=== PATIENT | female | born 1965 | race Caucasian/White ===

== ENCOUNTER 2019-06-04 19:37 | Inpatient (IN) ==
[2019-06-04] MEDS ORDERED: Isovue-370 500 ML BOTTLE IVP ONE (20:41)
[2019-06-04] MEDS ORDERED: Morphine Sulfate 2 MG/ML SYRINGE IVP ONE (20:55)
--- NOTE | 2019-06-04 20:55 | Emergency Department Note ---
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, PAD (peripheral artery disease), Factor V Leiden Disposition: Admitted As Inpatient Condition: Fair Time of Disposition: 23:00 General Adult HPI - General Chief complaint: ED Extremity Problem,Nontraumatic Stated complaint: L Leg Tingling Time Seen by Provider: 06/04/19 19:46 Source: patient Mode of arrival: private vehicle Limitations: no limitations Nursing Notes Reviewed: Yes Vital Signs Reviewed: Yes - History of Present Illness HPI Narrative: 53-year-old female with a history of PAD, factor V Fleet, DVTs, PEs, diabetes presents to the emergency department for evaluation of left leg numbness, cold, change in color, pain. Patient states over the last 30 days she has had pain and tingling in her leg off and on but this morning when she woke up the pain was in her groin and it was severe and radiating distally, around 1500 the pain moved to her knee radiating distally and around 1900 patient started having significant pain to her lower extremity, pallor, paresthesias. She states she was unable to walk. She denies any trauma. She does state that she follows with Dr. Dodge for vascular, she has had "making my arteries bigger", she has a stent "to the left side under my aorta". She does state that she has not on any anticoagulants except an 81 mg aspirin. She states the vascular surgeon took her off it quite some time ago. She does state she had some vomiting yesterday. She states she went to a festival where she was ambulating all day. She states a lot of ambulation well "cause a flare" of her leg pain however this goes above and beyond what her leg pain has ever felt like. Onset (ago): hour(s) Location: left, lower extremity Radiation: non-radiation Pain Severity: severe Pain Scale: 10 Consistency: constant, Worsening Improves with: nothing Worsens with: nothing Associated symptoms: Reports: nausea/vomiting (She states she was vomiting yesterday). Denies: confusion, chest pain, cough, diaphoresis, fever/chills, headaches, loss of appetite, malaise, rash, seizure, shortness of breath, syncope, weakness Treatments Prior to Arrival: none - Related Data Home Medications Medication Instructions Recorded Confirmed Aspirin [Lo-Dose Aspirin EC] 81 mg PO DAILY 03/22/19 03/22/19 Cyclobenzaprine [Flexeril] 10 mg PO TID PRN 03/22/19 03/22/19 Ergocalciferol (VITAMIN D2) 50,000 unit PO TYLER 03/22/19 03/22/19 [Vitamin D2] Furosemide [Lasix] 20 mg PO DAILY PRN 03/22/19 03/22/19 Gabapentin [Neurontin] 100 mg PO TID 03/22/19 03/22/19 Metformin HCl 500 mg PO DAILY 03/22/19 03/22/19 Montelukast [Singulair] 10 mg PO DAILY 03/22/19 03/22/19 Omeprazole [PriLOSEC] 20 mg PO DAILY 03/22/19 03/22/19 Ondansetron HCl [Zofran] 4 mg PO BID PRN 03/22/19 03/22/19 Previous Rx's Medication Instructions Recorded Amoxicillin [Amoxil] 500 mg PO BID #14 capsule 03/22/19 Allergies Allergy/AdvReac Type Severity Reaction Status Date / Time simvastatin AdvReac Muscle Pain Verified 06/04/19 19:53 All systems ED: reviewed and negative except as stated. Review of Systems: As Per HPI Past Medical History - Past Medical History Attestation: Yes The following information was validated with the patient. Source: patient Medical history: Reports: cancer, DVT, diabetes, GERD, hyperlipidemia, hypertension, migraine, peripheral artery disease Surgical history: Reports: , herniorrhaphy, hysterectomy Psychiatric history: Reports: anxiety - Social History Smoking Status: Never smoker Smokeless Tobacco Status: Yes Alcohol use: Reports: none Drug use: Reports: none Physical Exam - General Limitations: no limitations General appearance: alert, in no apparent distress - Head Head exam: atraumatic - Eye Eye exam: Present: normal appearance - ENT ENT exam: mucous membranes moist - Neck Neck exam: Present: normal inspection, full ROM, trachea midline - Chest Chest inspection: Present: normal inspection, symmetric chest wall rise - Respiratory Respiratory exam: Present: normal lung sounds bilaterally - Cardiovascular Cardiovascular exam: Present: regular rate, normal rhythm, normal heart sounds - Abdominal Exam Abdominal exam: Present: soft, Non-Tender, normal bowel sounds - Expanded Lower Extremity Exam Hip/Pelvis exam: Present: normal inspection, other (palpable femoral pulse) Upper leg exam: Present: normal inspection, full ROM Knee exam: Present: normal inspection, full ROM. Absent: tenderness Lower leg exam: Present: normal inspection, full ROM, other (distal half of lower extremity cold to touch) Ankle exam: Present: normal inspection, full ROM, other (cold to touch) Foot/toe exam: Present: full ROM, other (pallor, sluggish cap refill) Neurovascular/Tendon exam: Present: pulse deficit. Absent: normal capillary refill, motor deficit - Neurological Exam Neurological exam: Present: alert, oriented X3 - Psychiatric Psychiatric exam: Present: normal affect, normal mood - Skin Skin exam: Present: warm, dry, intact, normal color, pallor (left lower extremity) Course Course Narrative: Well-developed female in no acute distress. Respirations are easy and even. She is afebrile, normotensive, not tachycardic. Assessment reveals the distal half of the lower extremity with pallor, sluggish capillary refills, cold to touch. There is no palpable pulses to the DP or the TB. Utilizing Doppler a faint pulse was auscultated by myself to the TB. Good femoral pulses. Rest of physical exam is unremarkable. Immediate concern for ischemic limb, labs, CT of the aorta with runoff ordered. We will treat pain. Pt with pain, parasthesia, pallor, pulselessness 4 of the 6Ps on initial assessment. [id number] with Dr. Davalos from [facility], patient appears to have a left common iliac stent that is thrombosed as well as a proximal left popliteal artery thrombosed, only the TB overflow providing blood flow to the left lower extremity. Spoke with Dr. Leonard, on-call vascular surgeon, case was presented to him. After discussion he states he will come and see the patient. Patient now has paralysis of her toes, she states she is unable to command movem ent of them, pain is increasing. We have treated pain, anxiety. [id number] vascular surgeon determine take patient to surgery tonight. Patient is agreeable to this plan of care. We will monitor patient until time to go to surgery. Vital Signs Temperature 98.3 F 06/04/19 19:50 Pulse Rate 76 06/04/19 19:50 Respiratory Rate 18 06/04/19 19:50 Blood Pressure 161/91 06/04/19 19:50 O2 Sat by Pulse Oximetry 98 06/04/19 19:50 Temperature 97.8 F 06/05/19 04:40 Pulse Rate 89 06/05/19 05:15 Respiratory Rate 15 06/05/19 05:15 Blood Pressure 116/79 06/05/19 05:15 O2 Sat by Pulse Oximetry 94 06/05/19 05:15 Oxygen Delivery Oxygen Delivery Room Air Medical Decision Making - Lab Data Result diagrams: 06/05/19 00:52 06/04/19 20:09 Lab Results 06/04/19 06/04/19 06/04/19 Range/Units 20:09 20:09 20:09 WBC 8.4 (4.3-11.1) K/mcL RBC 4.24 (3.82-4.97) M/mcL Hgb 11.9 (11.5-15.4) g/dL Hct 36.7 (35.3-44.9) % MCV 86.6 (83.0-100.0) fL MCH 28.1 (28.0-33.3) pg MCHC 32.4 (31.6-35.5) g/dL RDW 13.6 (11.5-14.5) % Plt Count 260 (140-400) K/mcL MPV 9.6 (9.4-12.4) fL Immature Gran % 0.2 (0-4) % Seg Neutrophils % 49.7 % Lymphocytes % 39.5 % Monocytes % 6.9 % Eosinophils % 3.2 % Basophils % 0.5 % Neutrophils # 4.2 (1.6-8.9) K/mcL Lymphocytes # 3.3 (0.6-4.6) K/mcL Monocytes # 0.6 (0.0-1.3) K/mcL Eosinophils # 0.3 (0.0-0.6) K/mcL Basophils # 0.0 (0.0-0.2) K/mcL PT 10.5 (9.4-12.1) Seconds INR 0.9 APTT 27.7 (26.0-36.0) Seconds Sodium 136 (136-145) mEq/L Potassium 3.5 (3.5-5.1) mEq/L Chloride 104 (98-107) mEq/L Carbon Dioxide 23 (23-29) mEq/L BUN 16 (6-20) mg/dL Creatinine 0.74 (0.60-1.20) mg/dL Est GFR ( Amer) > 60 (> 60) Est GFR (Non-Af Amer) > 60 (> 60) BUN/Creatinine Ratio 22 (6-26) Glucose 107 H (70-105) mg/dL Calculated Osmolality 284 (280-300) Calcium 9.3 (8.6-10.3) mg/dL
--- NOTE | 2019-06-04 20:55 | Emergency Department Note ---
Disposition Clinical Impression: Arterial occlusion, lower extremity Disposition: Admitted As Inpatient Condition: Serious Referrals: Niurka Quarles, REINSURANCE CLAIM ANALYST [Primary Care Provider] - Forms: ED Satisfaction Letter Time of Disposition: 23:00 General Adult HPI - General Chief complaint: ED Extremity Problem,Nontraumatic Stated complaint: L Leg Tingling Time Seen by Provider: 06/04/19 19:46 Source: patient Limitations: no limitations Nursing Notes Reviewed: Yes Vital Signs Reviewed: Yes - History of Present Illness Pain Scale: 10 - Related Data Home Medications Medication Instructions Recorded Confirmed Aspirin [Lo-Dose Aspirin EC] 81 mg PO DAILY 03/22/19 03/22/19 Cyclobenzaprine [Flexeril] 10 mg PO TID PRN 03/22/19 03/22/19 Ergocalciferol (VITAMIN D2) 50,000 unit PO TYLER 03/22/19 03/22/19 [Vitamin D2] Furosemide [Lasix] 20 mg PO DAILY PRN 03/22/19 03/22/19 Gabapentin [Neurontin] 100 mg PO TID 03/22/19 03/22/19 Metformin HCl 500 mg PO DAILY 03/22/19 03/22/19 Montelukast [Singulair] 10 mg PO DAILY 03/22/19 03/22/19 Omeprazole [PriLOSEC] 20 mg PO DAILY 03/22/19 03/22/19 Ondansetron HCl [Zofran] 4 mg PO BID PRN 03/22/19 03/22/19 Previous Rx's Medication Instructions Recorded Amoxicillin [Amoxil] 500 mg PO BID #14 capsule 03/22/19 Allergies Allergy/AdvReac Type Severity Reaction Status Date / Time simvastatin AdvReac Muscle Pain Verified 06/04/19 19:53 Past Medical History - Past Medical History Medical history: Reports: cancer, DVT, diabetes, GERD, hyperlipidemia, hypertension, migraine, peripheral artery disease Surgical history: Reports: , herniorrhaphy, hysterectomy Psychiatric history: Reports: anxiety - Social History Smoking Status: Never smoker Smokeless Tobacco Status: Yes Alcohol use: Reports: none Drug use: Reports: none Physical Exam - General Limitations: no limitations General appearance: alert, in no apparent distress Course Vital Signs Temperature 98.3 F 06/04/19 19:50 Pulse Rate 76 06/04/19 19:50 Respiratory Rate 18 06/04/19 19:50 Blood Pressure 161/91 06/04/19 19:50 O2 Sat by Pulse Oximetry 98 06/04/19 19:50 Temperature 98.3 F 06/04/19 19:50 Pulse Rate 80 06/04/19 22:49 Respiratory Rate 24 06/04/19 22:49 Blood Pressure 142/77 06/04/19 22:49 O2 Sat by Pulse Oximetry 95 06/04/19 22:49 Oxygen Delivery Oxygen Delivery Room Air Medical Decision Making - Medical Records Medical records reviewed: Yes I reviewed the patient's medical records. - Lab Data Lab results reviewed: Yes I reviewed the patient's lab results. Result diagrams: 06/04/19 20:09 06/04/19 20:09 Lab Results 06/04/19 06/04/19 06/04/19 Range/Units 20:09 20:09 20:09 WBC 8.4 (4.3-11.1) K/mcL RBC 4.24 (3.82-4.97) M/mcL Hgb 11.9 (11.5-15.4) g/dL Hct 36.7 (35.3-44.9) % MCV 86.6 (83.0-100.0) fL MCH 28.1 (28.0-33.3) pg MCHC 32.4 (31.6-35.5) g/dL RDW 13.6 (11.5-14.5) % Plt Count 260 (140-400) K/mcL MPV 9.6 (9.4-12.4) fL Immature Gran % 0.2 (0-4) % Seg Neutrophils % 49.7 % Lymphocytes % 39.5 % Monocytes % 6.9 % Eosinophils % 3.2 % Basophils % 0.5 % Neutrophils # 4.2 (1.6-8.9) K/mcL Lymphocytes # 3.3 (0.6-4.6) K/mcL Monocytes # 0.6 (0.0-1.3) K/mcL Eosinophils # 0.3 (0.0-0.6) K/mcL Basophils # 0.0 (0.0-0.2) K/mcL PT 10.5 (9.4-12.1) Seconds INR 0.9 APTT 27.7 (26.0-36.0) Seconds Sodium 136 (136-145) mEq/L Potassium 3.5 (3.5-5.1) mEq/L Chloride 104 (98-107) mEq/L Carbon Dioxide 23 (23-29) mEq/L BUN 16 (6-20) mg/dL Creatinine 0.74 (0.60-1.20) mg/dL Est GFR ( Amer) > 60 (> 60) Est GFR (Non-Af Amer) > 60 (> 60) BUN/Creatinine Ratio 22 (6-26) Glucose 107 H (70-105) mg/dL Calculated Osmolality 284 (280-300) Calcium 9.3 (8.6-10.3) mg/dL - Radiology Data Radiology results reviewed: Yes I reviewed the patient's radiology results. Aorta w/Runoff CTA 06/04/19 20:41 IMPRESSION: 1. Stent in the proximal left common iliac artery which appears thrombosed. No contrast within the lumen. Distal reconstitution of the common iliac artery from retrograde flow. 2. Abrupt cutoff in the proximal left popliteal artery possibly representing acute thrombosis. Reconstitution of flow in the posterior tibial artery with a single vessel runoff into the ankle. Findings were discussed with Maria Eugenia García CNP of the [facility] emergency department at 9:47 pm on 06/04/2019. D/ / Raphael Davalos MD / Raphael Davalos MD Interpreting Provider: Raphael Davalos MD - EKG Data EKG #1 EKG attestation: Yes I reviewed and interpreted this EKG. EKG results narrative: EKG shows normal sinus rhythm with ventricular rate of 69. Left axis deviation. No significant ST segment elevation or depression. No arrhythmia or ectopy. No significant change from prior EKG dated 12/05/2015. Critical Care Time Critical Care Time: Yes Total Critical Care Time: 35 Attestation: Critical care performed: Time is exclusive of separately billable procedures. Time includes: direct patient care, patient reassessment, coordination of patient care, interpretation of data (laboratory data, radiology data, and respiratory data), review of patient's medical records, medical consultation and documentation of patient care. Procedures included in critical care time: Procedures excluded from critical care time: Attestation Statement - Attestation Attestation: I, Tyler Posada MD, personally evaluated this patient and discussed their management with the midlevel provicer, PAC/REINSURANCE CLAIM ANALYST. I reviewed the midlevel provider's note and agree with the documented findings, medical decision making, and plan of care. 53-year-old female with a history of peripheral vascular disease and a stent iliac presents to the emergency department complaining of intermittent problems with her left leg for the past month. This morning when she awoke she had a lot of pain in the left hip and groin area. At the day the pain gradually moved down the leg and this evening she developed pain from the knee down to the toes. Her left foot has turned cold and dusky and she is unable to walk due to the pain. On examination patient is a well-developed well-nourished female in no acute distress. She is alert and oriented 3. There is no cyanosis or diaphoresis. Sounds are clear and equal bilaterally. Heart regular rate and rhythm. Abdomen soft and nontender with normal bowel sounds. The left lower extremity is cold from the mid lower leg down to the toes. The toes are pale and dusky with delayed capillary refill. Unable to palpate DT or PT pulses. Questionable PT pulse Doppler but no DVT pulse by Doppler. EKG shows normal sinus rhythm with ventricular rate of 69. Left axis deviation. No significant ST segment elevation or depression. No arrhythmia or ectopy. No significant change from prior EKG dated 12/05/2015. CT aortogram with runoff shows thrombosis of the left iliac stent and acute thrombosis of the proximal left popliteal artery. Labs reviewed and unremarkable. The vascular surgeon telephone surveyor, Dr. Tate, was consulted and will follow-up with the patient shortly in the emergency department. After evaluation in the emergency department the patient is being taken to the operating room.
[2019-06-04 21:17] LABS: Basophils % 0.5 %; Eosinophils # 0.3 K/mcL (0.0-0.6); Eosinophils % 3.2 %; Hematocrit 36.7 % (35.3-44.9); Hemoglobin 11.9 g/dL (11.5-15.4); Immature Granulocytes % 0.2 % (0-4); Lymphocytes # 3.3 K/mcL (0.6-4.6); Lymphocytes % 39.5 %; Mean Corpuscular HGB Conc 32.4 g/dL (31.6-35.5); Mean Corpuscular Hemoglobin 28.1 pg (28.0-33.3); Mean Corpuscular Volume 86.6 fL (83.0-100.0); Mean Platelet Volume 9.6 fL (9.4-12.4); Monocytes # 0.6 K/mcL (0.0-1.3); Monocytes % 6.9 %; Neutrophils # 4.2 K/mcL (1.6-8.9); Platelet Count 260 K/mcL (140-400); Red Blood Count 4.24 M/mcL (3.82-4.97); Red Cell Distribution Width 13.6 % (11.5-14.5); Segmented Neutrophils % 49.7 %; White Blood Count 8.4 K/mcL (4.3-11.1)
[2019-06-04 21:25] LABS: INR 0.9; Prothrombin Time 10.5 Seconds (9.4-12.1)
[2019-06-04 21:28] LABS: Activated Partial Thrombo Time 27.7 Seconds (26.0-36.0)
[2019-06-04 21:36] LABS: BUN/Creatinine Ratio 22 (6-26); Blood Urea Nitrogen 16 mg/dL (6-20); Calcium 9.3 mg/dL (8.6-10.3); Carbon Dioxide 23 mEq/L (23-29); Chloride 104 mEq/L (98-107); Glucose 107 mg/dL (70-105); Osmolality,Calculated 284 (280-300); Potassium 3.5 mEq/L (3.5-5.1); Sodium 136 mEq/L (136-145); eGFR For African Americans > 60 (> 60); eGFR For Non-African Americans > 60 (> 60)
[2019-06-04] MEDS ORDERED: *HR* HYDROmorphone 2 MG/ML SYRINGE IVP ONE (21:51)
[2019-06-04] MEDS ORDERED: *HR* FentaNYL (PF) 100 MCG/2 ML VIAL IVP ONE (22:40)
[2019-06-04] MEDS ORDERED: *HR* LORazepam 2 MG/ML VIAL IVP ONE (22:40)
[2019-06-04] MEDS ORDERED: *HR* Cisatracurium 10 MG/5 ML VIAL IV ONE (23:35)
--- NOTE | 2019-06-04 23:40 | Vascular/Endovasc Consult Note ---
Date of Encounter: 06/04/19 Time of Encounter: 23:36 Assessment and Plan (1) Arterial occlusion, lower extremity Current Visit: Yes Status: Acute 53-year-old white female presents with severe pain involving the left leg. The patient does not have a femoral popliteal or pedal pulses. She has a faint left posterior tibial signal. Her calf is soft without compartment syndrome at this stage. Her left foot is bluish. She has abnormal sensation and motor function left foot. The patient is morbidly obese. She is known to have factor V Leiden deficiency. I recommend urgent intervention on her left lower extremity for revascularization. I will attempt an embolectomy of the left common iliac artery. If I am unable to do so I will pursue with a cross femoral bypass. Embolectomy of the left popliteal artery would be done through a groin incision. If I was not able to restore flow through the left popliteal artery I will explore the calf vessels. I explained the surgical procedure needed for revascularization of her left leg to the patient and her . They were both agreeable for me to pursue with the procedure. They gave me her informed consent. They are aware if that procedure is not done the patient cannot develop permanent muscle or nerve damage to the left leg. 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 Smith is a 53 year old female seen at the request of the emergency room team for severe pain involving the left lower extremity. The patient claims that she has been having problem was her left for the past 30-60 days. Her pain initially was consistent with claudication and affecting her left thigh and calf. The patient claims at 6:00 pm tonight she started experiencing severe pain involving her left foot. The pain was graded as 10 over 10 in intensity. It was throbbing-like. Patient claims that she could not put her foot on the floor. The foot hurts constantly. She has received morphine, Dilaudid, Ativan in the emergency room without any relief of her pain. The patient claims that she cannot move her toes to command. The patient is known to have a history of left common iliac artery stent. The patient claims that she quit smoking 2014. She smoked for more than 20 years prior to that. She is allergic to lovastatin. Past Med Surg Social Fam HX - Past Medical History Medical history: cancer, DVT, diabetes, GERD, hyperlipidemia, hypertension, migraine, peripheral artery disease Additional medical history: factor 5, stomach ulcers, skin cancer Psychiatric history: anxiety - Past Surgical History Surgical History: , herniorrhaphy, hysterectomy Additional surgical history: tubal. stent. vein stripping. tumor removed from ABD-benign. teeth pulled - Social History Smoking Status: Never smoker Smokeless Tobacco Status: Yes Alcohol use: none Drug use: none Medications and Allergies Amoxicillin [Amoxil] 500 mg PO BID #14 capsule 03/22/19 [Rx] Aspirin [Lo-Dose Aspirin EC] 81 mg PO DAILY 03/22/19 [History] Cyclobenzaprine [Flexeril] 10 mg PO TID PRN 03/22/19 [History] Ergocalciferol (VITAMIN D2) [Vitamin D2] 50,000 unit PO TYLER 03/22/19 [History] Furosemide [Lasix] 20 mg PO DAILY PRN 03/22/19 [History] Gabapentin [Neurontin] 100 mg PO TID 03/22/19 [History] Metformin HCl 500 mg PO DAILY 03/22/19 [History] Montelukast [Singulair] 10 mg PO DAILY 03/22/19 [History] Omeprazole [PriLOSEC] 20 mg PO DAILY 03/22/19 [History] Ondansetron HCl [Zofran] 4 mg PO BID PRN 03/22/19 [History] Allergy/AdvReac Type Severity Reaction Status Date / Time simvastatin AdvReac Muscle Pain Verified 06/04/19 19:53 ROS unobtainable: due to endotracheal tube All Systems Review: The remainder of the systems were reviewed and are negative - EENT Eyes: other (Chronic sinus problem.) Nose, mouth and throat: sinus pain - Cardiovascular Cardiovascular: claudication, other - Vascular Vascular: lower extremity coldness, other (Left leg constant pain.) - Respiratory Respiratory: cough - Musculoskeletal Musculoskeletal: abnormal gait, muscle cramps, myalgias - Integumentary Integumentary: other (Blose discoloration left toes) - Neurological Neurological: numbness Exam Vital Signs, Last 4 Hours Temp Pulse Resp BP Pulse Ox 06/04/19 22:49 80 24 142/77 95 06/04/19 22:07 81 18 144/77 99 06/04/19 21:22 75 23 155/76 99 06/04/19 19:50 98.3 F 76 18 161/91 98 General: Present: Other (In distress from severe pain involving her left foot.) HEENT: Present: Atraumatic, Pupils equal Neck: Present: Other (Supple no lymphadenopathy) Cardiac: Present: Reg Rate and Rhythm, Normal S1 and S2, No Murmur Lungs: Present: Normal Breath Sounds, No Wheeze, Rales, Rhonchi Neuro: Present: Other (Loss of sensation left foot. Significant pain left foot. Inability to move her toes on the left.) Abdomen: Present: Soft, Non-tender Vascular: Present: Pulse, absent (Absent left femoral popliteal pedal pulses. Calf is soft without compartment syndrome. Faint left posterior tibial signal.) Skin: Present: Other (Ischemic left foot) Consult Discharge Plan - Plan Referrals: Niurka Quarles, VENTURA [Primary Care Provider] -
--- NOTE | 2019-06-04 23:41 | Anesthesia Evaluation PreOp ---
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: Denies Any Significant HX Other Medical History: Diabetes Type II, GERD (hiatal hernia) Anesthesia History: No Prior Anesthetic Complications, Past Anesthesia Alcohol Use: occasionally Drug use: none Medications and Allergies Amoxicillin [Amoxil] 500 mg PO BID #14 capsule 03/22/19 [Rx] Aspirin [Lo-Dose Aspirin EC] 81 mg PO DAILY 03/22/19 [History] Cyclobenzaprine [Flexeril] 10 mg PO TID PRN 03/22/19 [History] Ergocalciferol (VITAMIN D2) [Vitamin D2] 50,000 unit PO TYLER 03/22/19 [History] Furosemide [Lasix] 20 mg PO DAILY PRN 03/22/19 [History] Gabapentin [Neurontin] 100 mg PO TID 03/22/19 [History] Metformin HCl 500 mg PO DAILY 03/22/19 [History] Montelukast [Singulair] 10 mg PO DAILY 03/22/19 [History] Omeprazole [PriLOSEC] 20 mg PO DAILY 03/22/19 [History] Ondansetron HCl [Zofran] 4 mg PO BID PRN 03/22/19 [History] Allergy/AdvReac Type Severity Reaction Status Date / Time simvastatin AdvReac Muscle Pain Verified 06/04/19 19:53 - Meds/Allergy Pre-op Review Medications Reviewed: Yes Allergies Reviewed: Yes Beta Blockers on Current Med List: No Anesthesia Results - Labs 06/04/19 20:09 06/04/19 20:09 Laboratory Tests 06/04/19 20:09 PT 10.5 INR 0.9 APTT 27.7 - Imaging EKG: report reviewed (12/05/2015 SINUS TACHYCARDIA MARKED LEFT AXIS DEVIATION POSSIBLE ANTERIOR MYOCARDIAL INFARCTION, PROBABLY OLD [place] [facility] [place]) Anesthesia Exam Vital Signs/O2 Sat, Most Current Temp Pulse Resp BP Pulse Ox 98.3 F 80 24 142/77 95 06/04/19 19:50 06/04/19 22:49 06/04/19 22:49 06/04/19 22:49 06/04/19 22:49 Height: 5'2''/1.57m Weight: 176 lbs/80.2 kg NPO (# of Hours): 8 Pain Scale: 8 (left leg) Pain Scale Used: Numeric (1 - 10) - HEENT Pupil (Motor): EOMI Mallampati: II Teeth: Normal, Missing Denture Type: Upper: Partial, Lower: Partial Oral Opening: Greater than 3 - RICE CLEANING MACHINE TENDER LOC: Oriented [employer]ICE CLEANING MACHINE TENDER Motor: Normal RUE, Normal LUE, Normal RLE, Normal Face, Deficit LLE [employer]ICE CLE[employer]ING MACHINE TENDER Sensory: Normal: RUE, LUE, RLE, Face, Deficit: LLE - Cardiac Rhythm: Regular Murmur: None - Pulmonary Breath Sounds: bilateral Clear Respiratory Effort: Symmetrical Anesthesia Assess/Plan ASA Score: 3 Level of consciousness: Cooperative, Oriented, Tranquil Anesthetic Plan: General Monitoring Plan: Standard Monitors Recovery Plan: PACU
[2019-06-04] MEDS ORDERED: Heparin 1,000 UNITS/500 mL 1,000 ML ONE (23:53)
[2019-06-05] MEDS ORDERED: *HR* Midazolam HCl 2 MG/2 ML VIAL ONE (00:03)
[2019-06-05] MEDS ORDERED: *HR* Propofol 200 MG/20 ML VIAL IVP ONE (00:03)
[2019-06-05] MEDS ORDERED: *HR* FentaNYL (PF) 100 MCG/2 ML VIAL ONE ×2 (00:03→01:22)
[2019-06-05] MEDS ORDERED: *HR* Succinylcholine 200 MG/10 ML VIAL IVP ONE (00:03)
[2019-06-05] MEDS ORDERED: Lidocaine -MPF 2% 2 ML VIAL ONE (00:03)
[2019-06-05] MEDS ORDERED: CeFAZolin Syr 2,000MG/20 ML 2,000 MG/20 ML SYRINGE IVPB ONE (00:06)
[2019-06-05] MEDS ORDERED: *HR* PHENYLEPHRINE 1,000 MCG/10 ML SYRINGE IVP ONE (00:07)
[2019-06-05] MEDS ORDERED: Isovue-300 50 ML VIAL ONE (00:23)
[2019-06-05] MEDS ORDERED: Acetaminophen 325 MG TABLET PO PRN (00:28)
[2019-06-05] MEDS ORDERED: Naloxone 0.4 MG/ML INJ IVP PRN (00:28)
[2019-06-05 01:03] LABS: Hematocrit 38.9 % (35.3-44.9); Hemoglobin 12.2 g/dL (11.5-15.4); Mean Corpuscular HGB Conc 31.4 g/dL (31.6-35.5); Mean Corpuscular Hemoglobin 28.1 pg (28.0-33.3); Mean Corpuscular Volume 89.6 fL (83.0-100.0); Mean Platelet Volume 9.7 fL (9.4-12.4); Platelet Count 239 K/mcL (140-400); Red Blood Count 4.34 M/mcL (3.82-4.97); Red Cell Distribution Width 13.5 % (11.5-14.5); Segmented Neutrophils % 56.5 %; White Blood Count 7.3 K/mcL (4.3-11.1)
[2019-06-05 01:04] LABS: Basophils % 0.5 %; Eosinophils # 0.2 K/mcL (0.0-0.6); Eosinophils % 2.9 %; Immature Granulocytes % 0.1 % (0-4); Lymphocytes # 2.4 K/mcL (0.6-4.6); Lymphocytes % 33.3 %; Monocytes # 0.5 K/mcL (0.0-1.3); Monocytes % 6.7 %; Neutrophils # 4.1 K/mcL (1.6-8.9)
[2019-06-05] MEDS ORDERED: *HR* Heparin 5,000 UNIT/ML VIAL ONE ×2 (01:11→01:45)
[2019-06-05] MEDS ORDERED: Dexamethasone 4 MG/ML VIAL ONE (03:29)
[2019-06-05] MEDS ORDERED: Ondansetron 4 MG/2 ML VIAL ONE (03:29)
--- NOTE | 2019-06-05 04:00 | Procedure Note ---
Date of procedure: 06/05/19 Pre-op diagnosis: Ischemic left lower extremity was neurogenic compromise. Procedure: 1. Embolectomy left common iliac artery via a left groin approach. 2. Embolectomy left popliteal artery. 3 left common iliac artery stenting. 4. Intraoperative angiogram Indication for the procedure: The patient is a 53-year-old white female with history of left common iliac artery stenting presented to the emergency room was 1 month history of left lower extremity claudication progressing to acute limb ischemia that started at 6 PM the day before admission. The patient claims that the pain involving her calf and foot. Her foot is insensate. She could not move her toes. The patient did not have iliac popliteal or pedal pulses. She has a faint left posterior tibial signal. Her foot was mottled. Her calf was soft. CT angiogram showed occluded left common iliac artery stent. Filling defect in the left popliteal artery. Due to her neurologic compromise we decided to take the patient urgently to the operating room for revascularization. The patient is diabetic. She is a former smoker. She is allergic to statins. Description of the procedure. The patient was brought to the operating room. She was placed on the table in supine comfortable position. Gen. anesthesia was given to the patient without any problem. A Franco catheter was placed in the bladder. Antibiotic was given to the patient preoperatively prophylactically. The procedure was started by making an incision in the left inguinal area. The incision was carried down through the skin and subcutaneous tissue. The common superficial and deep femoral arteries were dissected. Vessel loops were placed around. The patient was given 7000 units of heparin. Heparin was allowed to circulate for 3 minutes. A longitudinal arteriotomy was performed on the common femoral artery. A 7- [place] sheath was then introduced into the left common femoral artery and the sheath was secured in place with a vessel loop. I was able to advance a wire with the Kumpe catheter into the abdominal aorta. The Glidewire was then exchanged for a stiff Amplatz wire. A #5 [id number] Shay balloon was then introduced into the abdominal aorta. Embolectomy of the left common iliac artery was performed after 2 passes. The clot was evacuated after removing the sheath from the left common femoral artery. Angiogram of the left iliac system was performed via the left 7-[place] sheath. The patient has high-grade stenosis involving the mid segment of the stent for this reason a 9 x 37 express stent was deployed through the 7-[place] sheath completion angiogram showed widely. Left common iliac artery. Attention was then directed to the arteriotomy which was extended distally. I introduced a 5-[place] Shay balloon all the way down to the posterior tibial artery. I evacuated large amount of clot after 2 passes. I passed a [address] the way down to the posterior tibial artery. The positioning of the catheter was verified by fluoroscopy. Backbleeding was encountered from the superficial femoral artery. The arteriotomy was closed with a bovine pericardium patch. Flow was restored through the profunda and superficial femoral artery. Completion angiogram showed widely patent superficial femoral popliteal bifurcation. The posterior tibial artery is the main runoff to the left foot. The anterior tibial artery was not visualized. The left calf was soft to touch. I have elected not to pursue was a fasciotomy at this stage. The foot pinked up and improved significantly after congregation of flow. Blood loss was at thousand cc. Cell Saver was used. 600 was given back to the patient. She was hemodynamically stable throughout the procedure. She received a total of 10,000 units of heparin. I will recommend to anticoagulate the patient postoperatively. I will also recommend for the patient to get an echocardiogram. Anesthesia: GETA Surgeon: Liu Tate Was there an broker assistant present: No Estimated blood loss (cc): 1,000 Specimen: Clot Condition: stable Disposition: ICU
[2019-06-05] MEDS ORDERED: *HR* Dextrose 50 % in Water (Syg) 50 ML SYRINGE IVP PRN (04:10)
[2019-06-05] MEDS ORDERED: Dextrose Gel 15 GM/37.5 ML TUBE PO PRN ×2 (04:10)
[2019-06-05] MEDS ORDERED: D5% in Water 1,000 ML IVC PRN (04:10)
[2019-06-05] MEDS: Ondansetron 4 MG/2 ML VIAL IVP PRN ×2 (05:02→15:58)
[2019-06-05] MEDS: Insulin LISPRO 300 UNITS/3 ML VIAL SQ SCH ×4 (05:46→23:55)
[2019-06-05] MEDS: *HR* OxyCODONE Immed Rel 5 MG TABLET PO PRN ×3 (05:58→20:30)
[2019-06-05 08:34] LABS: Estimated Average Glucose 137 mg/dl
[2019-06-05] MEDS: *HR* HYDROcodone/Acet 5/325 mg TABLET PO PRN ×3 (08:55→23:57)
--- NOTE | 2019-06-05 14:58 | Electrocardiograph Report ---
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
--- NOTE | 2019-06-05 19:36 | Event Note ---
Date of Encounter: 06/05/19 Time of Encounter: 17:10 The patient was seen and examined. She is alert, comfortable and without complaints. She reports that her left lower extremity feeling much better. She reports adequate pain control. She reveals no evidence of hematoma. Her bandages dry. Her compartments are soft. Her pedal signals are present by Doppler. We will advance her diet and discontinue her Franco catheter. The patient may be transferred to if and when a bed is available.
[2019-06-06] MEDS ORDERED: 0.9 % Sodium Chloride 1,000 ML ONE (01:35)
[2019-06-06 06:22] VITALS: BP 124/75
[2019-06-06] MEDS: Insulin LISPRO 300 UNITS/3 ML VIAL SQ SCH (06:26)
[2019-06-06] MEDS: *HR* HYDROcodone/Acet 5/325 mg TABLET PO PRN (06:45)
--- NOTE | 2019-06-06 08:56 | Discharge Summary ---
Orders not resulted at time of discharge: Pending orders 06/04/19 20:42 UA w. reflex culture [Urinalysis Reflex Cult & Micro] [URIN] Stat 06/05/19 03:13 Surgical Pathology [PTH] Routine Date of Encounter: 06/06/19 Time of Encounter: 09:00 - Discharge Diagnosis (1) Atherosclerosis of [place] arteries of extremities with intermittent claudication, bilateral legs Priority: Primary Status: Acute Comments: The patient is postoperative day #1 after left iliac stent and left lower extremity thrombectomy. She reports her symptoms have resolved and she is healing well. She will be discharged today. 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 She will be discharged with oral anticoagulation with Xarelto. Lifelong anticoagulation is recommended due to her recurrent thromboembolic events. - Hospital Course Hospital course: Ms. Smith is a 53 year old female with a history of diabetes, a hypercoagulable state and peripheral vascular disease. The patient briefly had a left iliac stent placement. She presented to the emergency room with acute occlusion of all left iliac stent and popliteal artery. She underwent a left lower extremity thrombectomy and a iliac stent placement. He tolerated the procedure well. On postoperative day #1 she was healing well without complaints. Due to recurrent thromboembolic events she was discharged on Xarelto. Lifelong anticoagulation is recommended. The patient was discharged without complications. - Time Spent with Patient Total time spent providing and/or coordinating discharge services: - Discharge Medications Prescriptions: New OxyCODONE/APAP 5/325 [Percocet 5/325 MG] 1 each PO Q6HR PRN 5 Days #20 tablet PRN Reason: Postoperative pain Rivaroxaban [Xarelto] 20 mg PO DAILY #30 tablet Continued Omeprazole [PriLOSEC] 20 mg PO DAILY Montelukast [Singulair] 10 mg PO DAILY Gabapentin [Neurontin] 100 mg PO HS Furosemide [Lasix] 20 mg PO DAILY PRN PRN Reason: Edema Cyclobenzaprine [Flexeril] 10 mg PO TID PRN PRN Reason: Muscle Spasm Ondansetron HCl [Zofran] 4 mg PO BID PRN PRN Reason: Nausea Metformin HCl 500 mg PO DAILY Ergocalciferol (VITAMIN D2) [Vitamin D2] 50,000 unit PO TYLER Aspirin [Lo-Dose Aspirin EC] 81 mg PO DAILY Budesonide Neb [Pulmicort Neb] 0.5 mg NS BID Clarithromycin [Biaxin] 500 mg PO BID Fluticasone Propionate Nasal [Flonase] 2 spray NS DAILY Ibuprofen [Motrin] 800 mg PO HS Home Medications: Aspirin [Lo-Dose Aspirin EC] 81 mg PO DAILY 03/22/19 [History] Cyclobenzaprine [Flexeril] 10 mg PO TID PRN 03/22/19 [History] Ergocalciferol (VITAMIN D2) [Vitamin D2] 50,000 unit PO TYLER 03/22/19 [History] Furosemide [Lasix] 20 mg PO DAILY PRN 03/22/19 [History] Gabapentin [Neurontin] 100 mg PO HS 03/22/19 [History] Metformin HCl 500 mg PO DAILY 03/22/19 [History] Montelukast [Singulair] 10 mg PO DAILY 03/22/19 [History] Omeprazole [PriLOSEC] 20 mg PO DAILY 03/22/19 [History] Ondansetron HCl [Zofran] 4 mg PO BID PRN 03/22/19 [History] Budesonide Neb [Pulmicort Neb] 0.5 mg NS BID 06/05/19 [History] Clarithromycin [Biaxin] 500 mg PO BID 06/05/19 [History] Fluticasone Propionate Nasal [Flonase] 2 spray NS DAILY 06/05/19 [History] Ibuprofen [Motrin] 800 mg PO HS 06/05/19 [History] OxyCODONE/APAP 5/325 [Percocet 5/325 MG] 1 each PO Q6HR PRN 5 Days #20 tablet 06/06/19 [Rx] Rivaroxaban [Xarelto] 20 mg PO DAILY #30 tablet 06/06/19 [Rx] Allergies/Adverse Reactions: Allergy/AdvReac Type Severity Reaction Status Date / Time simvastatin AdvReac Muscle Pain Verified 06/05/19 10:42 Date of admission: 06/04/19 23:31 Primary care physician: Niurka Quarles CNP Procedure(s) Performed: Left iliac stent, left lower extremity thrombectomy Discharging clinician: Ever Dodge Anticipated date of discharge: 06/06/19 Exam Vital Signs, Last 4 Hours Pulse Resp BP Pulse Ox 06/06/19 06:00 97 19 124/75 95 - Patient Status Disposition: Home, Self-Care Condition: Fair Functional capacity at discharge: independent ambulation Overall status at discharge: patient is back to baseline - Discharge Instructions Instructions: Oxycodone/Acetaminophen (By mouth), Rivaroxaban (By mouth), Angiogram (DC), Peripheral Vascular Disease, 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 Wash wound gently with soap and water only and pat to dry. Apply dry gauze and paper tape to wound daily for 7 days. No tub baths or swimming until 07/16/2019. Call Dr. Dodge [phone] with questions or concerns. RISK FACTORS: STOP SMOKING: If you smoke, STOP. Smoking or tobacco use significantly increases your risk of vascular disease because nicotine causes the arteries to narrow or constrict. It also causes fats to stick to the artery. Your chances of having vascular problems are greatly increased if you continue to smoke. For more information, call the education line for smoking cessation 3-366-PDHCHPU EAT A LOW FAT/CHOLESTEROL/SODIUM DIET: This diet may help reduce your chances of having vascular problems. LIFTING: Avoid lifting anything more than 10 pounds for 5-7 days Prior to straining, laughing, sneezing and/or coughing, apply manual pressure directly over insertion site. ACTIVITY: You may walk or climb stairs as tolerated You can resume sexual activity as tolerated In general, you are encouraged to engage in physical activity, such as walking, 20 minutes twice a day. BATHING Do not submerge the site into water (bath tub, hot tub, swimming pool) for 1 week. This can be a source for infection into the blood stream. You may shower after 24 hours SITE CARE: After 24 hours, you may remove the dressing and leave the site open to air. Keep the site clean and dry. Clean gently and pat dry. You can expect bruising and tenderness that gradually resolve within a week or two. Return to work as instructed per your physician Resume driving as instructed per physician Keep all scheduled follow up appointments Resume medications as instructed IMPORTANT: If prescribed a Platelet Aggregation Inhibitor such as, Plavix, Brilinta or Effient: Duration of therapy is minimum 3 months These medications are often used in combination with Aspirin Never discontinue unless advised by your Vascular Surgeon. STROKE (CVA) Risk factors for a stroke are: Age, cigarette smoking, diabetes, excessive alcohol consumption, family history, high blood pressure, overweight, physical inactivity, prior stroke, heart attack, carotid artery disease or other artery disease. Warning signs: Sudden numbness or weakness of the face, arm or leg; especially on one side of the body, sudden confusion, trouble speaking or understanding, sudden trouble seeing in one eye, sudden trouble walking, dizziness, loss of balance or coordination, sudden severe headache with no cause. Call 911 or go to the Emergency Room. BLEEDING: Although the risk of bleeding is minimal, it can happen. If you have any bleeding from the site, apply firm pressure above the puncture site for 10-15 minutes. If the bleeding does not stop, continue manual pressure and call 911 Contact your physician if: You develop a fever greater than 101 degrees Fahrenheit Your site becomes reddened or has any drainage You have an increase in pain or burning at the site or if a large knot forms at the site. - Diet and Activity Activity: increase activity as tolerated Diet: advance to your usual diet
== END 2019-06-06 12:28 | disposition home or self-care (01) | DRG 271 ==
LOC: EMEROOARM 19:37 → ICNU 23:31 → 2ANU 06-06 08:47
PROVIDERS: ADMIT Surgery; ATTEND Surgery Vascular Surgery